=== PATIENT | female | born 1940 | race Caucasian/White ===

== ENCOUNTER 2022-02-14 17:41 | Inpatient (IN) ==
[2022-02-14 20:04] LABS: ABS Eosinophils 0.3 10^3/ul (0-0.6); ABS Lymphocytes 0.9 10^3/ul (1.0-4.8); ABS Monocytes 0.9 10^3/ul (0-0.8); Eosinophil % 4.4 %; Hematocrit 29 % (35-47); Hemoglobin 9.5 g/dL (12.0-16.0); Lymphocyte % 15.3 %; Mean Corpuscular HGB Conc 32 g/dL (31-36); Mean Corpuscular Hemoglobin 30 pg (27-31); Mean Corpuscular Volume 93 fL (80-97); Mean Platelet Volume 7.4 fL (7.4-10.4); Platelet Count 225 10^3/uL (150-450); Red Blood Count 3.14 10^6 /uL (3.70-4.87); Red Cell Distribution Width 16 % (10-15); White Blood Count 6.2 10^3/uL (3.5-10.8)
[2022-02-14 20:47] LABS: Albumin 3.2 g/dL (3.2-5.2); Albumin/Globulin Ratio 1.2 (1-3); Calcium 8.1 mg/dL (8.6-10.3); Globulin 2.6 g/dL (2-4); Potassium 4.1 mmol/L (3.5-5.0); Total Bilirubin 0.3 mg/dL (0.2-1.0); Total Protein 5.8 g/dL (6.4-8.9); eGFR CKD-EPI 36.6 (>60)
[2022-02-14] MEDS ORDERED: Iodixanol (CONTRAST) 320 MG/ML 100 ML SDV IV ONE (20:58)
[2022-02-14 21:33] LABS: High Sensitivity Troponin 1 Hr 122 pg/mL (<15)
[2022-02-14] MEDS ORDERED: Albuterol 2.5mg/3 ml (0.083%) NEB.SOLN INH PRN (23:08)
[2022-02-14] MEDS ORDERED: Enoxaparin 40 MG/0.4 ML SYR SUBCUT ONE (23:23)
[2022-02-14 23:43] LABS: Urine Appearance Turbid; Urine Bilirubin Negative (Negative); Urine Blood 1+ (Negative); Urine Color Amber; Urine Glucose Negative (Negative); Urine Ketones Negative (Negative); Urine Nitrite Negative (Negative); Urine Protein 2+(100 mg/dL) (Negative); Urine Specific Gravity 1.013 (1.002-1.030); Urine Urobilinogen Negative (Negative)
[2022-02-14] MEDS ORDERED: Enoxaparin 40 MG/0.4 ML SYR SUBCUT SCH (23:45)
[2022-02-14 23:50] LABS: Urine Bacteria Absent (Absent); Urine Red Blood Cell 1+(3-5/hpf) (Absent); Urine Squamous Epithelial Cell Present (Absent); Urine White Blood Cell 3+(>20/hpf) (Absent)
[2022-02-15] MEDS ORDERED: Enoxaparin 60 MG/0.6 ML SYR SUBCUT ONE (01:04)
[2022-02-15] MEDS: Amoxicillin/Clavul 500/125 TAB (Augmentin 500 mg tab) PO SCH ×3 (01:09→23:20)
[2022-02-15 06:52] LABS: ABS Eosinophils 0.4 10^3/ul (0-0.6); ABS Monocytes 0.8 10^3/ul (0-0.8); ABS Neutrophils 4.1 10^3/ul (1.5-7.7); Eosinophil % 6.2 %; Hematocrit 31 % (35-47); Hemoglobin 10.3 g/dL (12.0-16.0); Lymphocyte % 15.2 %; Mean Corpuscular HGB Conc 33 g/dL (31-36); Mean Corpuscular Hemoglobin 31 pg (27-31); Mean Corpuscular Volume 93 fL (80-97); Mean Platelet Volume 7.3 fL (7.4-10.4); Platelet Count 231 10^3/uL (150-450); Red Blood Count 3.37 10^6 /uL (3.70-4.87); Red Cell Distribution Width 16 % (10-15); White Blood Count 6.3 10^3/uL (3.5-10.8)
[2022-02-15 06:55] LABS: INR 1.07 (0.89-1.11)
[2022-02-15 07:14] LABS: High Sensitivity Troponin 3 Hr 436 pg/mL (<15)
[2022-02-15] MEDS ORDERED: CMC:Ranolazine 500 mg TAB ER (NF) PO SCH (09:00)
[2022-02-15 09:24] LABS: Calcium 8.6 mg/dL (8.6-10.3); HDL Cholesterol 39.1 mg/dL; Magnesium 2.2 mg/dL (1.9-2.7); eGFR CKD-EPI 38.2 (>60)
[2022-02-15] MEDS: Aspirin EC 81 mg TAB.EC (enteric coated) PO SCH (09:33)
[2022-02-15 10:15] LABS: Ferritin 16.3 ng/mL (11-307)
[2022-02-15] MEDS: Nystatin TOP POWDER 15 GM BTL TOPICAL SCH ×2 (12:44→23:24)
[2022-02-15] MEDS: CMC:Ranolazine 500 mg TAB ER (NF) PO SCH ×2 (12:59→23:22)
[2022-02-15] MEDS ORDERED: Enoxaparin 60 MG/0.6 ML SYR SUBCUT SCH ×2 (13:00→23:00)
[2022-02-15] MEDS: Mometasone/Formoter 200/5 MDI INH SCH ×2 (18:24→23:26)
[2022-02-15] MEDS: Enoxaparin 30 MG/0.3 ML SYR SUBCUT SCH (19:46)
[2022-02-16 07:54] LABS: ABS Eosinophils 0.3 10^3/ul (0-0.6); ABS Lymphocytes 0.9 10^3/ul (1.0-4.8); ABS Monocytes 0.8 10^3/ul (0-0.8); ABS Neutrophils 2.8 10^3/ul (1.5-7.7); Eosinophil % 6.8 %; Hematocrit 30 % (35-47); Hemoglobin 10.1 g/dL (12.0-16.0); Lymphocyte % 19.3 %; Mean Corpuscular HGB Conc 33 g/dL (31-36); Mean Corpuscular Hemoglobin 31 pg (27-31); Mean Corpuscular Volume 92 fL (80-97); Mean Platelet Volume 7.4 fL (7.4-10.4); Platelet Count 234 10^3/uL (150-450); Red Blood Count 3.29 10^6 /uL (3.70-4.87); Red Cell Distribution Width 16 % (10-15); White Blood Count 4.8 10^3/uL (3.5-10.8)
[2022-02-16 08:10] LABS: Calcium 8.3 mg/dL (8.6-10.3); Potassium 4.4 mmol/L (3.5-5.0)
[2022-02-16] MEDS: Mometasone/Formoter 200/5 MDI INH SCH ×2 (08:17→21:59)
[2022-02-16] MEDS: Amoxicillin/Clavul 500/125 TAB (Augmentin 500 mg tab) PO SCH ×2 (09:47→21:52)
[2022-02-16] MEDS: Aspirin EC 81 mg TAB.EC (enteric coated) PO SCH (09:47)
[2022-02-16] MEDS: Nystatin TOP POWDER 15 GM BTL TOPICAL SCH ×2 (09:48→21:54)
[2022-02-16] MEDS: CMC:Ranolazine 500 mg TAB ER (NF) PO SCH ×2 (09:51→21:52)
[2022-02-16] MEDS: Enoxaparin 30 MG/0.3 ML SYR SUBCUT SCH (18:21)
[2022-02-17 07:08] LABS: ABS Basophils 0.1 10^3/ul (0-0.2); ABS Eosinophils 0.3 10^3/ul (0-0.6); ABS Lymphocytes 0.9 10^3/ul (1.0-4.8); ABS Monocytes 0.8 10^3/ul (0-0.8); Eosinophil % 5.6 %; Hematocrit 30 % (35-47); Hemoglobin 9.8 g/dL (12.0-16.0); Lymphocyte % 15.2 %; Mean Corpuscular HGB Conc 33 g/dL (31-36); Mean Corpuscular Hemoglobin 30 pg (27-31); Mean Corpuscular Volume 92 fL (80-97); Mean Platelet Volume 7.5 fL (7.4-10.4); Platelet Count 234 10^3/uL (150-450); Red Blood Count 3.26 10^6 /uL (3.70-4.87); Red Cell Distribution Width 16 % (10-15); White Blood Count 6.1 10^3/uL (3.5-10.8)
[2022-02-17 07:29] LABS: Albumin 3.4 g/dL (3.2-5.2); Albumin/Globulin Ratio 1.2 (1-3); Globulin 2.9 g/dL (2-4); Magnesium 2.1 mg/dL (1.9-2.7); Potassium 4.4 mmol/L (3.5-5.0); Total Bilirubin 0.4 mg/dL (0.2-1.0); Total Protein 6.3 g/dL (6.4-8.9)
[2022-02-17] MEDS: Nystatin TOP POWDER 15 GM BTL TOPICAL SCH ×2 (09:41→21:49)
[2022-02-17] MEDS: Aspirin EC 81 mg TAB.EC (enteric coated) PO SCH (09:43)
[2022-02-17] MEDS: CMC:Ranolazine 500 mg TAB ER (NF) PO SCH ×2 (09:46→21:45)
[2022-02-17] MEDS: Amoxicillin/Clavul 500/125 TAB (Augmentin 500 mg tab) PO SCH ×2 (09:48→21:44)
[2022-02-17] MEDS: Mometasone/Formoter 200/5 MDI INH SCH ×2 (12:50→20:35)
[2022-02-17] MEDS: Enoxaparin 30 MG/0.3 ML SYR SUBCUT SCH (17:22)
[2022-02-18 06:57] LABS: ABS Basophils 0.1 10^3/ul (0-0.2); ABS Eosinophils 0.3 10^3/ul (0-0.6); ABS Lymphocytes 0.8 10^3/ul (1.0-4.8); ABS Monocytes 0.8 10^3/ul (0-0.8); ABS Neutrophils 3.4 10^3/ul (1.5-7.7); Eosinophil % 6.4 %; Hematocrit 32 % (35-47); Hemoglobin 10.3 g/dL (12.0-16.0); Lymphocyte % 14.6 %; Mean Corpuscular HGB Conc 33 g/dL (31-36); Mean Corpuscular Hemoglobin 31 pg (27-31); Mean Corpuscular Volume 93 fL (80-97); Mean Platelet Volume 7.6 fL (7.4-10.4); Platelet Count 236 10^3/uL (150-450); Red Blood Count 3.39 10^6 /uL (3.70-4.87); Red Cell Distribution Width 16 % (10-15); White Blood Count 5.4 10^3/uL (3.5-10.8)
[2022-02-18] MEDS: Mometasone/Formoter 200/5 MDI INH SCH ×2 (07:43→21:24)
[2022-02-18 07:52] LABS: Blood Urea Nitrogen 43 mg/dL (6-24); CO2 Carbon Dioxide 24 mmol/L (22-32); Calcium 9.1 mg/dL (8.6-10.3); Chloride 100 mmol/L (101-111); Glucose 103 mg/dL (70-100); Sodium 136 mmol/L (135-145); eGFR CKD-EPI 29.8 (>60)
[2022-02-18 07:57] LABS: Anion Gap 12 mmol/L (2-11)
[2022-02-18] MEDS: CMC:Ranolazine 500 mg TAB ER (NF) PO SCH ×2 (09:38→21:11)
[2022-02-18] MEDS: Amoxicillin/Clavul 500/125 TAB (Augmentin 500 mg tab) PO SCH ×2 (09:38→21:11)
[2022-02-18] MEDS: Aspirin EC 81 mg TAB.EC (enteric coated) PO SCH (09:39)
[2022-02-18] MEDS: Nystatin TOP POWDER 15 GM BTL TOPICAL SCH ×2 (09:41→21:13)
[2022-02-18] MEDS: Enoxaparin 30 MG/0.3 ML SYR SUBCUT SCH (18:06)
[2022-02-19 06:34] LABS: ABS Eosinophils 0.3 10^3/ul (0-0.6); ABS Lymphocytes 0.9 10^3/ul (1.0-4.8); ABS Monocytes 0.9 10^3/ul (0-0.8); ABS Neutrophils 3.9 10^3/ul (1.5-7.7); Eosinophil % 4.9 %; Hematocrit 30 % (35-47); Hemoglobin 10.2 g/dL (12.0-16.0); Lymphocyte % 14.5 %; Mean Corpuscular HGB Conc 33 g/dL (31-36); Mean Corpuscular Hemoglobin 31 pg (27-31); Mean Corpuscular Volume 92 fL (80-97); Mean Platelet Volume 7.5 fL (7.4-10.4); Platelet Count 227 10^3/uL (150-450); Red Blood Count 3.32 10^6 /uL (3.70-4.87); Red Cell Distribution Width 16 % (10-15)
[2022-02-19 07:51] LABS: Magnesium 2.2 mg/dL (1.9-2.7); Potassium 4.3 mmol/L (3.5-5.0)
[2022-02-19 07:56] LABS: eGFR CKD-EPI 27.1 (>60)
[2022-02-19] MEDS: Amoxicillin/Clavul 500/125 TAB (Augmentin 500 mg tab) PO SCH ×2 (08:08→21:00)
[2022-02-19] MEDS: CMC:Ranolazine 500 mg TAB ER (NF) PO SCH ×2 (08:09→21:01)
[2022-02-19] MEDS: Aspirin EC 81 mg TAB.EC (enteric coated) PO SCH (08:11)
[2022-02-19] MEDS: Nystatin TOP POWDER 15 GM BTL TOPICAL SCH ×2 (08:13→21:01)
[2022-02-19] MEDS: Mometasone/Formoter 200/5 MDI INH SCH ×2 (08:50→19:00)
[2022-02-19] MEDS: Enoxaparin 30 MG/0.3 ML SYR SUBCUT SCH (18:25)
[2022-02-20 06:15] LABS: ABS Basophils 0.1 10^3/ul (0-0.2); ABS Eosinophils 0.3 10^3/ul (0-0.6); ABS Lymphocytes 0.9 10^3/ul (1.0-4.8); ABS Monocytes 0.8 10^3/ul (0-0.8); ABS Neutrophils 3.3 10^3/ul (1.5-7.7); Eosinophil % 5.6 %; Hematocrit 30 % (35-47); Hemoglobin 9.9 g/dL (12.0-16.0); Lymphocyte % 16.8 %; Mean Corpuscular HGB Conc 33 g/dL (31-36); Mean Corpuscular Hemoglobin 31 pg (27-31); Mean Corpuscular Volume 92 fL (80-97); Mean Platelet Volume 7.6 fL (7.4-10.4); Platelet Count 231 10^3/uL (150-450); Red Blood Count 3.26 10^6 /uL (3.70-4.87); Red Cell Distribution Width 16 % (10-15); White Blood Count 5.3 10^3/uL (3.5-10.8)
[2022-02-20 06:40] LABS: Calcium 9.1 mg/dL (8.6-10.3); Magnesium 2.3 mg/dL (1.9-2.7); Potassium 4.2 mmol/L (3.5-5.0); eGFR CKD-EPI 28.3 (>60)
[2022-02-20] MEDS: Mometasone/Formoter 200/5 MDI INH SCH ×2 (07:53→20:52)
[2022-02-20] MEDS: Aspirin EC 81 mg TAB.EC (enteric coated) PO SCH (08:40)
[2022-02-20] MEDS: Amoxicillin/Clavul 500/125 TAB (Augmentin 500 mg tab) PO SCH ×2 (08:40→23:05)
[2022-02-20] MEDS: CMC:Ranolazine 500 mg TAB ER (NF) PO SCH ×2 (09:50→23:05)
[2022-02-20] MEDS: Nystatin TOP POWDER 15 GM BTL TOPICAL SCH ×2 (13:25→23:06)
[2022-02-20] MEDS: Enoxaparin 30 MG/0.3 ML SYR SUBCUT SCH (18:06)
[2022-02-21 06:54] LABS: Hematocrit 30 % (35-47); Mean Corpuscular HGB Conc 34 g/dL (31-36); Mean Corpuscular Hemoglobin 31 pg (27-31); Mean Corpuscular Volume 92 fL (80-97); Mean Platelet Volume 7.6 fL (7.4-10.4); Platelet Count 230 10^3/uL (150-450); Red Blood Count 3.25 10^6 /uL (3.70-4.87); Red Cell Distribution Width 15 % (10-15); White Blood Count 5.1 10^3/uL (3.5-10.8)
[2022-02-21 07:15] LABS: Calcium 9.2 mg/dL (8.6-10.3); Magnesium 2.3 mg/dL (1.9-2.7); Potassium 4.4 mmol/L (3.5-5.0); eGFR CKD-EPI 34.9 (>60)
[2022-02-21] MEDS: Mometasone/Formoter 200/5 MDI INH SCH ×2 (07:24→19:02)
[2022-02-21 08:43] LABS: ABS Eosinophils 0.3 10^3/ul (0-0.6); ABS Lymphocytes 0.9 10^3/ul (1.0-4.8); ABS Monocytes 0.8 10^3/ul (0-0.8); ABS Neutrophils 3.1 10^3/ul (1.5-7.7); Eosinophil % 5.2 %; Lymphocyte % 16.7 %
[2022-02-21] MEDS: Aspirin EC 81 mg TAB.EC (enteric coated) PO SCH (10:24)
[2022-02-21] MEDS: Nystatin TOP POWDER 15 GM BTL TOPICAL SCH ×2 (10:31→20:29)
[2022-02-21] MEDS: CMC:Ranolazine 500 mg TAB ER (NF) PO SCH ×2 (11:27→21:36)
[2022-02-21] MEDS ORDERED: Regadenoson 0.4 MG/5 ML SYRINGE ONE (12:44)
[2022-02-21] MEDS: Amoxicillin/Clavul 500/125 TAB (Augmentin 500 mg tab) PO SCH ×2 (14:19→20:25)
[2022-02-21] MEDS: Enoxaparin 30 MG/0.3 ML SYR SUBCUT SCH (18:08)
[2022-02-22 06:58] LABS: ABS Eosinophils 0.2 10^3/ul (0-0.6); ABS Lymphocytes 0.9 10^3/ul (1.0-4.8); ABS Monocytes 0.8 10^3/ul (0-0.8); ABS Neutrophils 3.5 10^3/ul (1.5-7.7); Eosinophil % 3.6 %; Hematocrit 31 % (35-47); Hemoglobin 10.3 g/dL (12.0-16.0); Lymphocyte % 16.4 %; Mean Corpuscular HGB Conc 33 g/dL (31-36); Mean Corpuscular Hemoglobin 31 pg (27-31); Mean Corpuscular Volume 92 fL (80-97); Mean Platelet Volume 7.9 fL (7.4-10.4); Platelet Count 232 10^3/uL (150-450); Red Blood Count 3.37 10^6 /uL (3.70-4.87); Red Cell Distribution Width 16 % (10-15); White Blood Count 5.5 10^3/uL (3.5-10.8)
[2022-02-22 07:18] LABS: Calcium 9.2 mg/dL (8.6-10.3); Magnesium 2.4 mg/dL (1.9-2.7); Potassium 4.9 mmol/L (3.5-5.0); eGFR CKD-EPI 36.3 (>60)
[2022-02-22] MEDS: Mometasone/Formoter 200/5 MDI INH SCH (08:29)
[2022-02-22] MEDS: Amoxicillin/Clavul 500/125 TAB (Augmentin 500 mg tab) PO SCH (10:18)
[2022-02-22] MEDS: Aspirin EC 81 mg TAB.EC (enteric coated) PO SCH (10:18)
[2022-02-22] MEDS: CMC:Ranolazine 500 mg TAB ER (NF) PO SCH (10:19)
[2022-02-22] MEDS: Nystatin TOP POWDER 15 GM BTL TOPICAL SCH (10:20)
[2022-02-22 12:23] VITALS: BP 120/70
== END 2022-02-22 17:20 | disposition home or self-care (01) | DRG 281 ==
LOC: EDHOLD 17:41 → ED 17:41 → OBSVTOIN 23:05 → SUATTDRO 23:05 → MEDTELE 02-15 17:27
PROVIDERS: ADMIT Internal Medicine; ATTEND Internal Medicine